=== PATIENT | female | born 1980 | race Caucasian/White ===

== ENCOUNTER 2019-04-11 09:25 | Inpatient (IN) | payer OTHER ==
[2019-04-11] MEDS ORDERED: MISOPROSTOL 200 MCG TAB PR ×2 (10:00→11:00)
[2019-04-11] MEDS ORDERED: OXYTOCIN 30 UNITS/LR 500 ML IV ×3 (10:00→11:00)
[2019-04-11] MEDS ORDERED: CARBOPROST 250 MCG INJ IM ×2 (10:00→11:00)
[2019-04-11] MEDS ORDERED: LIDOCAINE 1% (MPF) 30 ML INJ INJ (10:00)
[2019-04-11] MEDS: LACTATED RINGER'S 1,000 ML IV (10:06)
[2019-04-11] MEDS: AMPICILLIN 2 GM/NS (PMX) 100 ML IV (10:06)
[2019-04-11] MEDS: MINERAL OIL LIGHT 10 ML VIAL TOP (10:30)
[2019-04-11] MEDS: METHYLERGONOVINE 0.2 MG INJ IM (10:35)
[2019-04-11] MEDS: OXYTOCIN 30 UNITS/LR 500 ML IV ×2 (10:37→11:55)
[2019-04-11] MEDS ORDERED: LANOLIN HPA 1 PKT TOP (11:00)
[2019-04-11] MEDS ORDERED: NACL 0.9% 3 ML SYG IV (11:00)
[2019-04-11] MEDS ORDERED: SENNA/DOCUSATE NA (8.6MG/50MG) TAB PO (11:00)
[2019-04-11] MEDS ORDERED: METHYLERGONOVINE 0.2 MG INJ IM (11:00)
[2019-04-11] MEDS ORDERED: DIPHENHYDRAMINE 25 MG CAP PO (11:00)
[2019-04-11] MEDS ORDERED: ONDANSETRON 4 MG INJ IV (11:00)
[2019-04-11] MEDS: IBUPROFEN 600 MG TAB PO ×3 (11:07→23:37)
[2019-04-11] MEDS: OXYCODONE/ASPIRIN (4.88/325) TAB PO (11:53)
[2019-04-11] MEDS ORDERED: AMPICILLIN 1 GM/NS (PMX) 50 ML IV (14:00)
[2019-04-11] MEDS: SENNA/DOCUSATE NA (8.6MG/50MG) TAB PO (21:14)
[2019-04-12] MEDS: IBUPROFEN 600 MG TAB PO ×4 (06:00→23:57)
[2019-04-12] MEDS: SENNA/DOCUSATE NA (8.6MG/50MG) TAB PO ×2 (13:36→21:26)
[2019-04-13] MEDS: IBUPROFEN 600 MG TAB PO (05:37)
[2019-04-13] MEDS: SENNA/DOCUSATE NA (8.6MG/50MG) TAB PO (09:27)
== END 2019-04-13 11:40 | disposition home or self-care (01) | DRG 807 ==
LOC: OBT 09:25 → L-D 09:25 → OBT 09:32 → L-D 09:32 → PP1 12:18
PROC: 10E0XZZ Delivery of Products of Conception, External Approach (ICD-10-PCS; principal; 2019-04-11)
DX: O80 Encounter for full-term uncomplicated delivery (principal); Z37.0 Single live birth; Z3A.39 39 weeks gestation of pregnancy
CPT/HCPCS: 85025; 85610; 85730; 86592; 86850; 86900; 86901